=== PATIENT | female | born 1935 | race Caucasian/White ===

== ENCOUNTER → 2016-08-17 | Outpatient (CLI) | payer MEDICARE, OTHER ==
[~2016-08-17] MED LIST: ALEVE PO; ALLOPURINOL300 MG PO; CALCIUM W/D PO; CHONDROITIN; GLUCOSAMINE; I CAPS PO; KLOR-CON 1010 MEQ PO; LISINOPRIL 10MG10 MG PO; MAXZIDE 25 MG-31 TA1 PO; Oxybutynin5 MG PO; TOPROL XL 25MG25 MG PO; VIT C PO; VITAMIN D1000 IU PO
[2016-08-17 14:36] LABS: BUN 41 mg/dL (7-18)
[2016-08-17 14:37] LABS: GFR (ESTIMATED) 18 ML/MIN (59-)
== END ==
LOC: LAB 12:14
PROVIDERS: Internal Medicine Nephrology
DX: N18.4 Chronic kidney disease, stage 4 (severe) (principal)

== ENCOUNTER → 2017-07-05 | Outpatient (CLI) | payer MEDICARE, OTHER ==
[2017-07-05 14:52] LABS: HEMOGLOBIN 10.3 g/dL (12.2-16.2); LYMPH # 0.8 K/mm3 (0.7-4.5); LYMPH % 14.2 % (10-50.0)
[2017-07-06 06:37] LABS: Vitamin D, 25-Hydroxy 22.6 ng/mL (30.0-100.0)
[2017-07-06 08:40] LABS: RA Latex Turbid. <10.0 IU/mL (0.0-13.9)
[2017-07-08 12:41] LABS: Antinuclear Antibodies, IFA Negative (.)
== END ==
LOC: LAB 14:21
PROVIDERS: Internal Medicine Nephrology
DX: N18.4 Chronic kidney disease, stage 4 (severe) (principal)

== ENCOUNTER → 2017-07-19 | Outpatient (CLI) | payer MEDICARE, OTHER ==
[2017-07-19 15:28] LABS: BUN 41 mg/dL (7-18)
[2017-07-19 15:48] LABS: GFR (ESTIMATED) 14 ML/MIN (59-)
== END ==
LOC: LAB 12:36
PROVIDERS: Internal Medicine Nephrology
DX: E87.5 Hyperkalemia (principal)